=== PATIENT | male | born 2000 | race Two or more races ===

== ENCOUNTER 2018-04-22 02:50 | Emergency (ER) | payer OTHER ==
[2018-04-22] MEDS ORDERED: IBUPROFEN 600 MG TAB PO ONE ×2 (03:01→03:02)
[2018-04-22] MEDS ORDERED: HYDROCODONE/APAP 5/325 TAB PO ONE (03:36)
[2018-04-22] MEDS ORDERED: HYDROCOD/APAP 5/325 PREPACK#6 BTL TAKEHOME ONE (03:36)
--- NOTE | 2018-04-22 04:11 | EDPHY ---
H & P Stated Complaint: l ankle pain rolled it Time Seen by Provider: 04/22/18 03:27 HPI/ROS: HPI: The patient presents with left ankle pain which has been present for the last 1 and 0.5 hr. The patient was running and jumped up and then landed on his left ankle then inverting it and falling to the ground. He has been unable to bear weight ever since. He has pain which is moderate, aching, does not radiate. He does not have any numbness or tingling of his foot. He has no prior ankle injuries. REVIEW OF SYSTEMS Constitutional: No fever, no chills. Musculoskeletal: No back pain. Skin: No rashes. Neurological: No headache. PMHx: Healthy TRAUMA PHYSICAL General Appearance: Alert, no distress Head: Atraumatic Neck: Non- tender, trachea midline Respiratory: Breathing comfortably Skin: No lacerations, No abrasion Extremities: Left ankle is tender throughout joint with diffuse edema and limited range of motion secondary to pain, there are 2+ DP pulses, he has full range of motion of his toes and sensation is intact to light touch, there is no knee tenderness Neurological: A&Ox3, GCS=15,normal motor function with 5/5 strength in all 4 extremities, normal sensory exam Source: Patient Exam Limitations: No limitations - Personal History Current Tetanus/Diphtheria Vaccine: Yes Current Tetanus Diphtheria and Acellular Pertussis (TDAP): Yes - Medical/Surgical History Hx Asthma: No Hx Chronic Respiratory Disease: No Hx Diabetes: No Hx Cardiac Disease: No Hx Renal Disease: No Hx Cirrhosis: No Hx Alcoholism: No Hx HIV/AIDS: No Hx Splenectomy or Spleen Trauma: No Other PMH: just broken bones - Social History Smoking Status: Never smoked Constitutional: Initial Vital Signs Temperature (C) 36.9 C 04/22/18 02:58 Heart Rate 108 H 04/22/18 02:58 Respiratory Rate 20 04/22/18 02:58 Blood Pressure 132/107 H 04/22/18 02:58 O2 Sat (%) 95 04/22/18 02:58 O2 Delivery Mode Room Air Allergies/Adverse Reactions: No Known Allergies Allergy (Unverified 04/22/18 02:58) Home Medications: Medication Instructions Recorded Hydrocodone/APAP 5/325 [[place] 1 - 2 tab PO Q6H PRN #15 tab 04/22/18 5/325 (*)] Medical Decision Making - Diagnostics Imaging Results: X-ray left ankle three views shows fracture of the medial malleolus and distal fibula, interpreted by me, radiology interpretation pending. Imaging: I viewed and interpreted images myself Procedures: SPLINT Procedure: Splint placement. A ortho glass posterior short-leg with sugar-tong splint was applied to the left ankle by the tech. After application of the splint I returned and re- examined the patient. The splint was adequately immobilizing the joint and distal to the splint the patient's circulation and sensation was intact. Differential Diagnosis: 18-year-old male presents with left ankle pain after jumping in inverting his ankle. He is neurovascularly intact. He is given oral pain medication with improvement in his symptoms. X-rays were obtained which do demonstrate medial malleolar fracture and distal fibular fracture which are nondisplaced. We have placed him in a splint. His pain is markedly improved with this. I have discussed return precautions for compartment syndrome with him. There is minimal edema at this time and I feel he is low risk given his mechanism was not high velocity. He will be discharged home with crutches. He will call the orthopedist today to schedule follow-up. - Data Points Medications Given: Discontinued Medications Hydrocodone Bitart/Acetaminophen ([place] 5/325mg Prepack#6) 1 btl TAKEHOME EDNOW ONE Stop: 04/22/18 03:37 Last Admin: 04/22/18 04:25 Dose: 1 btl Hydrocodone Bitart/Acetaminophen ([place] 5/325) 2 tab PO EDNOW ONE Stop: 04/22/18 03:37 Last Admin: 04/22/18 04:25 Dose: 2 tab Ibuprofen (Motrin) 600 mg PO EDNOW ONE Stop: 04/22/18 03:03 Last Admin: 04/22/18 03:04 Dose: 600 mg Departure - Departure Disposition: Home, Routine, Self-Care Clinical Impression: Medial malleolar fracture Qualifiers: Encounter type: initial encounter Fracture type: closed Fracture alignment: nondisplaced Laterality: left Qualified Code(s): S82.55XA - Nondisplaced fracture of medial malleolus of left tibia, initial encounter for closed fracture Fracture of distal fibula Qualifiers: Encounter type: initial encounter Fracture type: closed Fracture morphology: torus Laterality: left Qualified Code(s): S82.822A - Torus fracture of lower end of left fibula, initial encounter for closed fracture Condition: Good Instructions: Hydrocodone/Acetaminophen (By mouth), Ankle Fracture (ED), Splint Care (ED), R.I.C.E. Treatment (ED) Additional Instructions: Please call Dr. Phillips later this morning to arrange for a follow-up appointment. You should return to the emergency room if your having any worsening swelling or pain of your leg or any numbness or tingling. Referrals: Cindy Phillips MD [Medical Doctor] - As per Instructions Prescriptions: Hydrocodone/APAP 5/325 [[place] 5/325 (*)] 1 - 2 tab PO Q6H PRN #15 tab PRN Reason: Pain, Moderate
[2018-04-22 04:31] VITALS: BP 143/73
== END 2018-04-22 04:33 | disposition home or self-care (01) ==
PROC: 2W3RX1Z Immobilization of Left Lower Leg using Splint (ICD-10-PCS; principal; 2018-04-22)
DX: S82.55XA Nondisplaced fracture of medial malleolus of left tibia, initial encounter for closed fracture (principal); S82.822A Torus fracture of lower end of left fibula, initial encounter for closed fracture; Y93.02 Activity, running; W19.XXXA Unspecified fall, initial encounter